=== PATIENT | female | born 1970 | race Hispanic/Latino ===

== ENCOUNTER 2017-07-06 16:49 | Emergency (ER) | payer OTHER ==
[~2017-07-06 16:49] MED LIST: AMLO5TAB2 PO; ASPI-1181 PO; ATOR40TA71 PO; BENA20TA10 PO; GABA-529 PO
[2017-07-06 17:18] LABS: BASOPHILS % (AUTO) 0.5 % (0.0-5.0); EOSINOPHILS % (AUTO) 0.1 % (0.0-8.0); HEMATOCRIT 42.2 % (36-48); MEAN CORPUSCULAR HEMOGLOBIN 30.8 pg (27.0-33.0); MEAN CORPUSCULAR HGB CONC 35.2 g/dL (32.0-36.0); MEAN CORPUSCULAR VOLUME 87.6 fL (79-99); MONOCYTES % (AUTO) 6.6 % (3.0-13.0); NEUTROPHILS % (AUTO) 84.8 % (40.0-77.0); PLATELET COUNT (AUTO) 159 K/uL (130-400); RED BLOOD CELL COUNT(AUTO) 4.81 MIL/uL (4.00-5.50); RED CELL DISTRIBUTION WIDTH 14.9 % (11.0-15.5); WHITE BLOOD COUNT (AUTO) 8.9 K/uL (4.8-10.8)
[2017-07-06 17:28] LABS: APPEARANCE,URINE Clear (CLEAR); BILIRUBIN,URINE Small (NEGATIVE); COLOR,URINE Dark Yellow (YELLOW); GLUCOSE, URINE (UA) >=1000 mg/dL (NEGATIVE); KETONES,URINE 15 mg/dL (NEGATIVE); LEUKOCYTE ESTERASE ,URINE Trace (NEGATIVE); NITRATE,URINE Negative (NEGATIVE); OCCULT BLOOD,URINE Negative (NEGATIVE); PH,URINE 5.5 (5.0-8.0); PROTEIN,URINE POS 1+ (NEGATIVE)
[2017-07-06 17:32] LABS: CREATININE 0.8 mg/dL (0.5-1.5); POTASSIUM 3.5 mmol/L (3.5-5.1)
[2017-07-06 17:39] LABS: BACTERIA,URINE Moderate /HPF (None Seen); MUCUS,URINE Moderate LPF (None Seen); RBC,URINE None Seen /HPF (0-1); RENAL EPITHELIAL CELLS,URINE Rare /HPF (None Seen); TRANSITIONAL EPI CELLS,URINE Few /HPF (None Seen)
[2017-07-06] MEDS ORDERED: SODIUM CHLORIDE 0.9% 1000ML 2,000 ML IV ONE (17:48)
[2017-07-06] MEDS ORDERED: ONDANSETRON HCL MDV 20ML 2 MG/ML VIAL ONE ×2 (17:48→19:58)
[2017-07-06] MEDS ORDERED: DiphenhydrAMINE HCL 50 MG/ML VIAL ONE (19:57)
[2017-07-06] MEDS ORDERED: HYDROMORPHONE 1 MG/1 ML AMP ONE (19:59)
== END 2017-07-06 20:49 | disposition home or self-care (01) ==
LOC: EDH 16:49
DX: R51 Headache (principal); R11.2 Nausea with vomiting, unspecified; E11.9 Type 2 diabetes mellitus without complications; E78.5 Hyperlipidemia, unspecified; I10 Essential (primary) hypertension; Z85.3 Personal history of malignant neoplasm of breast; Z88.8 Allergy status to other drugs, medicaments and biological substances
CPT/HCPCS: 36415; 70450; 80048; 81001; 85025; 96361; 96374; 96375; 96376; 99285; J1170; J1200; J7030

== ENCOUNTER 2017-08-13 12:27 | Inpatient (IN) | payer OTHER ==
[~2017-08-13] VITALS: Ht 165.1 cm; Wt 113.4 kg
[2017-08-13 13:19] LABS: BASOPHILS % (AUTO) 0.4 % (0.0-5.0); EOSINOPHILS % (AUTO) 0.1 % (0.0-8.0); HEMATOCRIT 43.1 % (36-48); LYMPHOCYTES % (AUTO) 8.5 % (21.0-51.0); MEAN CORPUSCULAR HEMOGLOBIN 30.6 pg (27.0-33.0); MEAN CORPUSCULAR HGB CONC 34.7 g/dL (32.0-36.0); MEAN CORPUSCULAR VOLUME 88.3 fL (79-99); MONOCYTES % (AUTO) 3.2 % (3.0-13.0); NEUTROPHILS % (AUTO) 87.8 % (40.0-77.0); PLATELET COUNT (AUTO) 200 K/uL (130-400); RED BLOOD CELL COUNT(AUTO) 4.88 MIL/uL (4.00-5.50); RED CELL DISTRIBUTION WIDTH 13.8 % (11.0-15.5); WHITE BLOOD COUNT (AUTO) 12.9 K/uL (4.8-10.8)
[2017-08-13 13:25] LABS: CREATININE 0.8 mg/dL (0.5-1.5); POTASSIUM 3.5 mmol/L (3.5-5.1)
[2017-08-13 13:39] LABS: ALBUMIN 3.3 g/dL (3.5-5.0); BILIRUBIN,DIRECT 0.4 mg/dL (0.0-0.3); BILIRUBIN,TOTAL 1.1 mg/dL (0.2-1.0); CREATINE KINASE MB 1.4 ng/mL (0.5-3.6); TOTAL PROTEIN, SERUM 6.9 g/dL (6.0-8.3)
[2017-08-13 13:47] LABS: APPEARANCE,URINE Clear (CLEAR); BILIRUBIN,URINE Negative (NEGATIVE); COLOR,URINE Dark Yellow (YELLOW); GLUCOSE, URINE (UA) >=1000 mg/dL (NEGATIVE); KETONES,URINE Trace mg/dL (NEGATIVE); LEUKOCYTE ESTERASE ,URINE Negative (NEGATIVE); NITRATE,URINE Negative (NEGATIVE); OCCULT BLOOD,URINE Negative (NEGATIVE); PH,URINE 5.5 (5.0-8.0); PROTEIN,URINE POS 1+ (NEGATIVE)
[2017-08-13 14:08] LABS: BACTERIA,URINE Rare /HPF (None Seen); RBC,URINE 0-1 /HPF (0-1); SQUAMOUS EPITHELIAL CELL,UR Rare /HPF (0-2); WBC,URINE 0-1 /HPF (0-1)
[2017-08-13] MEDS ORDERED: SODIUM CHLORIDE 0.9% 1000ML 1,000 ML IV ONE (14:33)
[2017-08-13] MEDS ORDERED: POTASSIUM CHLORIDE 10% ELIXIR 20 MEQ/15 ML UDCUP PO PRN (16:00)
[2017-08-13] MEDS ORDERED: DEXTROSE 50%-WATER 50 ML DISP.SYRIN IV PRN (16:00)
[2017-08-13] MEDS ORDERED: GLUCAGON 1MG KIT 1 MG ML IM PRN (16:00)
[2017-08-13] MEDS ORDERED: POTASSIUM CHLORIDE 20 MEQ ERTAB PO PRN (16:00)
[2017-08-13] MEDS ORDERED: MORPHINE SULFATE 4 MG/1ML SYG IVP PRN (16:00)
[2017-08-13] MEDS ORDERED: ONDANSETRON HCL 4 MG/2 ML VIAL IVP PRN (16:00)
[2017-08-13] MEDS ORDERED: ZOSYN 3.375GM+NS 50ML 50 ML IV ONE (16:19)
[2017-08-13 17:25] VITALS: BP 153/89
[2017-08-13] MEDS ORDERED: TAMO20TA4 PO (18:40)
[2017-08-13] MEDS ORDERED: METF10004 PO (18:40)
[2017-08-13 19:00] VITALS: BP 142/89
[2017-08-13] MEDS: INSULIN R PO SS1 SQ SCH (21:04)
[2017-08-14] VITALS (20 sets, daily range): BP systolic 127–180; BP diastolic 68–99
[2017-08-14] MEDS: INSULIN R PO SS1 SQ SCH ×5 (01:58→21:00)
[2017-08-14 04:41] LABS: HEMATOCRIT 40.2 % (36-48); MEAN CORPUSCULAR HGB CONC 36.1 g/dL (32.0-36.0); MEAN CORPUSCULAR VOLUME 88.5 fL (79-99); PLATELET COUNT (AUTO) 195 K/uL (130-400); RED BLOOD CELL COUNT(AUTO) 4.54 MIL/uL (4.00-5.50); RED CELL DISTRIBUTION WIDTH 13.9 % (11.0-15.5); WHITE BLOOD COUNT (AUTO) 7.1 K/uL (4.8-10.8)
[2017-08-14] MEDS ORDERED: BENA20TA10 PO (05:06)
[2017-08-14 05:09] LABS: ALBUMIN 2.8 g/dL (3.5-5.0); BILIRUBIN,TOTAL 0.8 mg/dL (0.2-1.0); CREATININE 0.7 mg/dL (0.5-1.5); MAGNESIUM 1.6 mg/dL (1.80-2.40); POTASSIUM 3.2 mmol/L (3.5-5.1); TOTAL PROTEIN, SERUM 6.6 g/dL (6.0-8.3)
[2017-08-14] MEDS ORDERED: DIATR MEGLU/DIATRIZOATE SODIUM 30 ML BOTTLE ONE (05:52)
[2017-08-14] MEDS ORDERED: IOPAMIDOL-370 75 ML VIAL IV ONE (08:35)
[2017-08-14] MEDS ORDERED: PROPOFOL 10 MG/ML 20ML VIAL IV ONE ×2 (13:45→18:48)
[2017-08-14] MEDS ORDERED: GLYCOPYRROLATE 0.2 MG/ML 5 ML VIAL ONE (13:46)
[2017-08-14] MEDS ORDERED: LIDOCAINE HCL 2% 20ML ONE (13:46)
[2017-08-14] MEDS: POTASSIUM CHLORIDE 20MEQ/100ML 100 ML IV PRN (16:25)
[2017-08-14] MEDS: LIDOCAINE HCL-MPF 1% 2ML VIAL IJ PRN (16:26)
[2017-08-15 04:00] VITALS: BP 123/79
[2017-08-15] MEDS: LIDOCAINE HCL-MPF 1% 2ML VIAL IJ PRN (05:33)
[2017-08-15] MEDS: POTASSIUM CHLORIDE 20MEQ/100ML 100 ML IV PRN (05:33)
[2017-08-15] MEDS: INSULIN R PO SS1 SQ SCH ×2 (05:39→11:30)
[2017-08-15] MEDS ORDERED: CLONIDINE HCL 0.1 MG TABLET PO PRN (06:30)
[2017-08-15 08:39] VITALS: BP 147/96
[2017-08-15] MEDS ORDERED: PANTOPRAZOLE SODIUM 40 MG TABLET.DR PO SCH (09:00)
[2017-08-15 12:53] VITALS: BP 148/96
[2017-08-15 17:11] VITALS: BP 125/84
== END 2017-08-15 18:10 | disposition home or self-care (01) | DRG 720 ==
LOC: EDH 12:27 → EDHIP 15:34 → 3DH 17:03
PROVIDERS: ADMIT Internal Medicine Infectious Disease; ATTEND Internal Medicine Infectious Disease
PROC: 0DB68ZX Excision of Stomach, Via Natural or Artificial Opening Endoscopic, Diagnostic (ICD-10-PCS; principal; 2017-08-14)
DX: A41.9 Sepsis, unspecified organism (principal); K80.00 Calculus of gallbladder with acute cholecystitis without obstruction; E83.42 Hypomagnesemia; K76.0 Fatty (change of) liver, not elsewhere classified; Z68.41 Body mass index [BMI] 40.0-44.9, adult; E11.9 Type 2 diabetes mellitus without complications; E66.9 Obesity, unspecified; E78.5 Hyperlipidemia, unspecified; I10 Essential (primary) hypertension; K21.9 Gastro-esophageal reflux disease without esophagitis; K31.89 Other diseases of stomach and duodenum; K22.8 Other specified diseases of esophagus; E87.6 Hypokalemia; K29.70 Gastritis, unspecified, without bleeding; Z90.12 Acquired absence of left breast and nipple; Z90.710 Acquired absence of both cervix and uterus; Z92.21 Personal history of antineoplastic chemotherapy; Z79.899 Other long term (current) drug therapy; Z88.8 Allergy status to other drugs, medicaments and biological substances; Z90.721 Acquired absence of ovaries, unilateral; Z80.3 Family history of malignant neoplasm of breast; Z83.3 Family history of diabetes mellitus; Z82.49 Family history of ischemic heart disease and other diseases of the circulatory system; Z83.79 Family history of other diseases of the digestive system
CPT/HCPCS: 36415; 74178; 76705; 80048; 80053; 80076; 81001; 82550; 82553; 82948; 83605; 83690; 83735; 84132; 84484; 85025; 85027; 86316; 87040; 88305; 88312; J2543; J2704; J3480; J3490; J7030; Q9963; Q9967

== ENCOUNTER 2017-12-20 20:33 | Emergency (ER) | payer OTHER ==
[~2017-12-20 20:33] MED LIST changes: -AMLO5TAB2 PO; +AMLO5TAB7 PO; -GABA-529 PO; +METF-446 PO; +TAMO20TA4 PO
[2017-12-20] MEDS ORDERED: ONDANSETRON 4 MG TABLET ONE (21:01)
[2017-12-20] MEDS ORDERED: ACETAMINOPHEN-CODEINE ELIXIR 5 ML UDCUP ONE (21:01)
[2017-12-20] MEDS ORDERED: DEXAMETHASONE SOD PHOSPHATE 4 MG/ML 1ML VIAL ONE (21:01)
== END 2017-12-20 21:39 | disposition home or self-care (01) ==
LOC: EDH 20:33
DX: B34.9 Viral infection, unspecified (principal); T78.49XA Other allergy, initial encounter; R51 Headache; E11.9 Type 2 diabetes mellitus without complications; E78.5 Hyperlipidemia, unspecified; I10 Essential (primary) hypertension; Z85.3 Personal history of malignant neoplasm of breast; Z88.6 Allergy status to analgesic agent; X58.XXXA Exposure to other specified factors, initial encounter
CPT/HCPCS: 96372; 99283; J1100; Q0162

== ENCOUNTER 2021-12-17 17:25 | Emergency (ER) | payer OTHER ==
[~2021-12-17] VITALS: Ht 157.5 cm; Wt 104.8 kg
[~2021-12-17 17:25] MED LIST changes: +AMLO-257 PO; -AMLO5TAB7 PO; -ASPI-1181 PO; +ASPI-1443 PO; +BENA-8 PO; -BENA20TA10 PO
[2021-12-17 17:30] VITALS: BP 137/99
[2021-12-17 18:27] LABS: BASOPHILS % (AUTO) 0.7 % (0.0-5.0); EOSINOPHILS % (AUTO) 0.5 % (0.0-8.0); HEMATOCRIT 41.6 % (36-48); LYMPHOCYTES % (AUTO) 22.3 % (21.0-51.0); MEAN CORPUSCULAR HEMOGLOBIN 29.3 pg (27.0-33.0); MEAN CORPUSCULAR HGB CONC 34.1 g/dL (32.0-36.0); MEAN CORPUSCULAR VOLUME 85.8 fL (79-99); MONOCYTES % (AUTO) 6.6 % (3.0-13.0); NEUTROPHILS % (AUTO) 69.7 % (40.0-77.0); PLATELET COUNT (AUTO) 111 K/uL (130-400); RED BLOOD CELL COUNT(AUTO) 4.85 MIL/uL (4.00-5.50); RED CELL DISTRIBUTION WIDTH 13.2 % (11.0-15.5); WHITE BLOOD COUNT (AUTO) 9.2 K/uL (4.8-10.8)
[2021-12-17 18:35] LABS: CREATININE 0.9 mg/dL (0.5-1.5); POTASSIUM 3.5 mmol/L (3.5-5.1)
[2021-12-17 18:39] LABS: TOTAL PROTEIN, SERUM 7.8 g/dL (6.0-8.3)
== END 2021-12-17 19:49 | disposition home or self-care (01) ==
LOC: EDH 17:25
DX: U07.1 COVID-19 (principal); R51.9 Headache, unspecified; E11.9 Type 2 diabetes mellitus without complications; E78.00 Pure hypercholesterolemia, unspecified; I10 Essential (primary) hypertension
CPT/HCPCS: 36415; 80053; 85025

== ENCOUNTER 2024-07-28 18:49 | Emergency (ER) | payer BC ==
[~2024-07-28] VITALS: Ht 165.1 cm; Wt 100.2 kg
[~2024-07-28 18:49] MED LIST changes: -AMLO-257 PO; -ASPI-1443 PO; -ATOR40TA71 PO; -BENA-8 PO; +LISI20TA24 PO; -METF-446 PO
--- NOTE | 2024-07-28 20:16 | HMCIMG ---
CHEST 1VW HISTORY: Chest congestion COMPARISON: 01/30/2017 FINDINGS: A frontal projection of the chest was obtained. Mild bilateral pulmonary infiltrates are seen may be related to mild pulmonary vascular congestion with possible superimposed pneumonitis. The heart is borderline enlarged. Port-A-Cath is seen entering from the right. Degenerative changes are seen. IMPRESSION: 1. Mild bilateral pulmonary infiltrates are seen may be related to mild pulmonary vascular congestion with possible superimposed pneumonitis.
[2024-07-28 20:40] LABS: INFLUENZA TYPE A Negative For Type A (NEGATIVE); INFLUENZA TYPE B Negative For Type B (NEGATIVE)
[2024-07-28 20:41] LABS: COVID19 (SARS ANTIGEN RAPID) PRESUMPTIVE NEGATIVE (NEGATIVE)
[2024-07-28 20:43] LABS: APPEARANCE,URINE CLOUDY (CLEAR); BILIRUBIN,URINE NEGATIVE (NEGATIVE); COLOR,URINE YELLOW (YELLOW); GLUCOSE, URINE (UA) >=1000 mg/dL (NEGATIVE); KETONES,URINE NEGATIVE (NEGATIVE); LEUKOCYTE ESTERASE ,URINE 250 Leu/uL (NEGATIVE); NITRATE,URINE 2+ (NEGATIVE); OCCULT BLOOD,URINE NEGATIVE (NEGATIVE); PROTEIN,URINE 10 mg/dL (NEGATIVE)
[2024-07-28 20:44] LABS: ADD UA MICROSCOPIC YES
[2024-07-28 20:45] LABS: BACTERIA,URINE MOD /HPF (None Seen); MUCUS,URINE RARE LPF (None Seen); SQUAMOUS EPITHELIAL CELL,UR RARE /HPF (0-2); UNCLASSIFIED CRYSTAL 1 /HPF (None Seen); WBC,URINE 51-100 /HPF (0-1)
[2024-07-28 21:10] VITALS: BP 157/89; PULSE 85; RESP 16; TEMP 98; O2SAT 97
[2024-07-28] MEDS ORDERED: AMOX1TAB16 PO (21:24)
[2024-07-28] MEDS ORDERED: BENZ-39 PO (21:24)
--- NOTE | 2024-07-28 21:30 | ERN ---
General Chief Complaint: Cough Stated Complaint: THINKS HAVE PNEUMONIA/ BURNING URINE Time Seen by MD: 18:58 Time Seen by Midlevel: 18:58 Source: patient History of Present Illness Initial Comments The patient is a 53-year-old female with a past medical history of type 2 diabetes and breast cancer presenting to the emergency department with multiple complaints. She reports having a cough for the last four days. She states her symptoms feel similar to the previous time she was diagnosed with pneumonia. She also reports increased urinary frequency and dysuria and believes she may have a urinary tract infection. Denies any other symptoms Allergies: Coded Allergies: ibuprofen (Unverified Allergy, Unknown, 10/04/16) Home Meds Reported Medications Lisinopril (Lisinopril) 20 Mg Tablet, 20 MG PO AM, TAB 12/06/22 Tamoxifen Citrate (Tamoxifen Citrate) 20 Mg Tablet, 20 MG PO DAILY AT 0600, TAB 08/13/17 Past Medical History Past Medical History: Diabetes-Type II, High Cholesterol, Hypertension Medical History Other: LT BREAT CA Past Surgical History: Hysterectomy, Surgical History Other: HERNIA, LT KNEE Female( History) History: Not Applicable ROS Dictation CONSTITUTIONAL: Negative except for HPI HEAD/FACE: Negative except for HPI EENT: Negative except for HPI RESPIRATORY: Negative except for HPI GASTROINTESTINAL/ABDOMINAL: Negative except for HPI GENITOURINARY: Negative except for HPI MUSCULOSKELETAL: Negative except for HPI INTEGUMENTARY: Negative except for HPI NEUROLOGICAL/PSYCH: Negative except for HPI HEMATOLOGIC/LYMPHATIC: Negative except for HPI All Systems Negative, Except as noted above. 13 point review of systems assessed and all negative except for above. Physical Exam Physical Exam Dictation Vital Signs reviewed General Appearance: Alert, oriented x 3, no acute distress, well developed, nourished. Head and Face: non-traumatic. Eyes: PERRL, pink conjunctivas, eyelid no trauma, anterior chamber with arcus senilis. Ears: Pinnas intact and no signs of trauma or erythema ear canals clear and no discharge TM no erythema Nose: No discharge, no bleeding. Oropharynx: Mouth normal, tongue pink, pharynx clear,no erythema, tonsils no exudates, no abscesses noted, mucous membrane moist Neck: Supple, non-tender, no thyromegaly, no masses, no JVD, no bruits Breast:Deferred Chest:No tenderness, no crepitus, no paradoxical movement, no retractions Lungs:Clear, well-ventilated, symmetric, no rales, no wheezing, no rhonchi, no stridor, good breath sounds bilaterally Heart: Regular rate, regular rhythm, no murmur, no gallops Vascular: no peripheral edema, Abdomen: Soft, positive bowel sounds, nondistended, no guarding, nontender, no rebound, no masses no hepatomegaly, no splenomegaly, no Elliott's sign, no hernias. Rectal: Deferred Genital: Deferred Neurological: Normal speech, motor function intact, sensory function intact Musculoskeletal: Neck nontender, full range of motion, back nontender, full range of motion, Extremities: nontender, full range of motion Skin: Color pink, dry, no turgor, no rash, no lacerations, no abrasions, no contusions. Lymphatic: Deferred Results Laboratory and Microbiology Lab and Micro Result Laboratory Tests Test 07/28/24 20:06 07/28/24 20:30 Influenza Type A Antigen Negative For Type A Influenza Type B Antigen Negative For Type B SARS-CoV-2 Antigen (Rapid) PRESUMPTIVE NEGATIVE Urine Color YELLOW (YELLOW) Urine Appearance CLOUDY (CLEAR) H Urine pH 6.0 (5.0-8.0) Urine Specific [place] 1.031 (1.001-1.031) Urine Protein 10 mg/dL (NEGATIVE) H Urine Glucose (UA) >=1000 mg/dL (NEGATIVE) H Urine Ketones NEGATIVE mg/dL (NEGATIVE) Urine Occult Blood NEGATIVE (NEGATIVE) Urine Nitrate 2+ (NEGATIVE) H Urine Bilirubin NEGATIVE mg/dL (NEGATIVE) Urine Urobilinogen 4.0 mg/dL (0.2-1.0) H Urine Leukocyte Esterase 250 Phill/uL (NEGATIVE) H Urine RBC 2-5 /HPF (0-1) H Urine WBC 51-100 /HPF (0-1) H Urine Squamous Epithelial Cells RARE /HPF (0-2) Urine Other Crystals (Auto) 1 /HPF (None Seen) Urine Bacteria MOD /HPF (None Seen) Labs Reviewed?: Yes MDM MDM: Differential diagnosis: Pneumonia, urinary tract infection, viral illness There are no social concerns with this patient. Prescription drug management Prescriptions will include: Augmentin, Tessalon Perles Medical management and examination interpretation discussions were had by me with other qualified healthcare professionals as indicated for the patient's care. ED Course Orders Procedure Category Date Status Time Influenza Type A & B, LAB 07/28/24 Complete Rapid 18:54 Covid19 (Sars Antigen LAB 07/28/24 Complete Rapid) 18:54 Urinalysis Profile LAB 07/28/24 Complete 18:54 Chest 1vw RAD 07/28/24 Resulted 18:54 Culture Urine RACHEL 07/28/24 In Process 20:44 Vital Signs Date Time Temp Pulse Resp B/P (MAP) Pulse Ox O2 Delivery O2 Flow Rate FiO2 07/28/24 21:10 98.1 85 16 157/89 97 Room Air* 0 21 07/28/24 18:55 98.2 88 16 168/95 96 Room Air 0 [place] [id number] [address] IMAGING REPORT Signed PATIENT: GORDON MCLAUGHLIN MR#: [id number] : 1970 SEX: F AGE: 53 LOCATION: [facility] ORDER 54 STATUS: REG ER REPORT#: [id number] SERVICE 53 REASON: CHEST CONGESTION ORDERING PHYSICIAN: ALYSON HENDRICKS DO PROCEDURE: CXR1VW - CHEST 1VW CHEST 1VW HISTORY: Chest congestion COMPARISON: 01/30/2017 FINDINGS: A frontal projection of the chest was obtained. Mild bilateral pulmonary infiltrates are seen may be related to mild pulmonary vascular congestion with possible superimposed pneumonitis. The heart is borderline enlarged. Port-A-Cath is seen entering from the right. Degenerative changes are seen. IMPRESSION: 1. Mild bilateral pulmonary infiltrates are seen may be related to mild pulmonary vascular congestion with possible superimposed pneumonitis. DICTATED BY: EVELINA SOW MD DATE: 07/28/242010 ELECTRONICALLY SIGNED BY: EVELINA SOW MD DATE: 07/28/242015 DX & DISP Disposition: Discharge Departure Impression: Primary Impression: Community acquired pneumonia Additional Impression: Urinary tract infection Condition: Stable Scripts Benzonatate (Tessalon Perles) 100 Mg Cap 100 MG PO TID for cough, #30 CAP 0 Refills Prov: YOVANI QUINTANILLA 07/28/24 Amoxicillin/Potassium Clav (Amox Tr-K Clv 875-125 mg Tab) 875 Mg-125 Mg Tablet 1 EACH PO BID for 10 Days, #20 TAB 0 Refills Prov: YOVANI QUINTANILLA 07/28/24 Referrals: MORE IBARRA MD (PCP) I have reviewed the case, and I agree with, Diagnosis and Plan I performed the substantive portion of the visit. I have reviewed and personally made and approve the management plan that is documented in the note by myself or the [facility]. I acknowledge for responsibility for the patient's management plan. YOVANI QUINTANILLA Jul 28, 2024 21:30
[2024-07-28] MEDS: cefTRIAXone 1G VIAL IM ONE (21:34)
== END 2024-07-28 21:38 | disposition home or self-care (01) ==
LOC: EDH 18:49
DX: J18.9 Pneumonia, unspecified organism (principal); N39.0 Urinary tract infection, site not specified; E11.9 Type 2 diabetes mellitus without complications; E78.00 Pure hypercholesterolemia, unspecified; I10 Essential (primary) hypertension; Z20.822 Contact with and (suspected) exposure to COVID-19; Z88.6 Allergy status to analgesic agent; Z90.710 Acquired absence of both cervix and uterus; Z98.890 Other specified postprocedural states
CPT/HCPCS: 99284; 71045; 87426; 87086 ×2; 87186; 87804 ×2; 81001; 96372; J0696

== ENCOUNTER 2025-02-02 18:29 | Emergency (ER) | payer BC ==
[~2025-02-02] VITALS: Ht 157.5 cm; Wt 103.4 kg
[~2025-02-02 18:29] MED LIST changes: +AMOX1TAB16 PO; +BENZ-39 PO
--- NOTE | 2025-02-02 18:57 | ERN ---
ED Note History of Present Illness Stated Complaint: LOWER EXT EDEMA Chief Complaint: LOWER EXTREMITY EDEMA Time Seen by MD: 18:35 Dictation: 54-year-old female presents to ER complaints of bilateral lower extremity edema. Patient denies chest pain or shortness of breath. Patient states she has had about 2 years of noncompliance with blood pressure medication. She has not seen a doctor. Patient has history of HTN and diabetes Allergies: Coded Allergies: ibuprofen (Unverified Allergy, Unknown, 10/04/16) Home Meds Active Scripts Benzonatate (Tessalon Perles) 100 Mg Cap, 100 MG PO TID for cough, #30 CAP 0 Refills Prov:YOVANI QUINTANILLA PAC 07/28/24 Amoxicillin/Potassium Clav (Amox Tr-K Clv 875-125 mg Tab) 875 Mg-125 Mg Tablet, 1 EACH PO BID for 10 Days, #20 TAB 0 Refills Prov:YOVANI QUINTANILLA PAC 07/28/24 Reported Medications Lisinopril (Lisinopril) 20 Mg Tablet, 20 MG PO AM, TAB 12/06/22 Tamoxifen Citrate (Tamoxifen Citrate) 20 Mg Tablet, 20 MG PO DAILY AT 0600, TAB 08/13/17 Past Medical History Past Medical History: Cancer, Diabetes-Type II, High Cholesterol, Hypertension Additional Past Medical Hx: LT BREAT CA Surgical History: Hysterectomy, Other, Surgical History Other: LT MASTECTOMY, D&C, LT KNEE SX History: Not Applicable Review of System Dictation CONSTITUTIONAL: NEGATIVE FOR FEVER,CHILLS, AND WEIGHT LOSS EYES: NEGATIVE FOR INJURY, PAIN,REDNESS, AND DISCHARGE ENT: NEGATIVE FOR INJURY,PAIN OR SWELLING CARDIOVASCULAR: NEGATIVE FOR CHEST PAIN, PALPITATIONS,. Positive lower leg edema RESPIRATORY: NEGATIVE FOR SHORTNESS OF BREATH, COUGH, WHEEZING, AND PLEURITIC CHEST PAIN ABDOMEN/GI: NEGATIVE FOR ABDOMINAL PAIN, NAUSEA, VOMITING AND DIARRHEA. BACK: NEGATIVE FOR PAIN OR INJURY : NEGATIVE FOR INJURY, BLEEDING AND DISCHARGE MS/EXTREMITY: NEGATIVE FOR INJURY AND DEFORMITY SKIN: NEGATIVE FOR RASH, AND DISCOLORATION NEURO: NEGATIVE FOR HEADACHE, WEAKNESS, NUMBNESS, TINGLING, AND SEIZURE PSYCH: NEGATIVE FOR SUICIDE IDEATION, HOMICIDAL IDEATION, AND HALLUCINATIONS ALLERGY/IMMUNOLOGY: NEGATIVE FOR HIVES, RASH, AND ALLERGIES ALL SYSTEMS NEGATIVE, EXCEPT NOTED ABOVE. 13 POINT REVIEW OF SYSTEMS ASSESSED AND ALL NEGATIVE EXCEPT FOR ABOVE. Initial Vital Sign VS Vital Signs Date Time Temp Pulse Resp B/P (MAP) Pulse Ox O2 Delivery O2 Flow Rate FiO2 02/02/25 18:33 97.3 98 16 166/92 98 Room Air 0 02/02/25 21:45 21 Physical Exam Dictation General: awake, alert, NAD Head/Face: Normocephalic, atraumatic Eyes: PERRL, EOMI, vision at baseline ENT: oral cavity clear, TMs clear, no signs of infection Neck: Trachea midline, supple, no nuchal rigidity Cardiovascular: RRR, normal no JVD. Plus one pedal edema to bilateral lower legs Respiratory: CTAB, no respiratory distress, No rales or wheezes Abdomen: Soft, non-tender, non-distended, normal bowel sounds, no guarding or rebound. Skin: Warm, dry, normal turgor, no rash MS/Extremity: Pulses equal, no cyanosis, neurovascular intact, FROM Neuro: COAx4, GCS 15, strength 5/5, CN 2-12 intact, normal cerebellar exam, normal gait, Psych: Normal behavior, mood, and affect normal Results (Laboratory/Radiology) Laboratory/Radiology Laboratory Tests Test 02/02/25 20:10 White Blood Count 4.4 K/uL (4.8-10.8) L Red Blood Count 4.46 MIL/uL (4.00-5.50) Hemoglobin 10.3 g/dL (12.0-16.0) L Hematocrit 33.8 % (36-48) L Mean Corpuscular Volume 75.8 fL (79-99) L Mean Corpuscular Hemoglobin 23.1 pg (27.0-33.0) L Mean Corpuscular Hemoglobin Concent 30.5 g/dL (32.0-36.0) L Red Cell Distribution Width 16.9 % (11.0-15.5) H Platelet Count 122 K/uL (130-400) L Mean Platelet Volume fL (7.5-10.5) Immature Granulocyte % (Auto) 0.2 % (0-1) Neutrophils (%) (Auto) 60.2 % (40.0-77.0) Lymphocytes (%) (Auto) 24.5 % (21.0-51.0) Monocytes (%) (Auto) 13.5 % (3.0-13.0) H Eosinophils (%) (Auto) 0.9 % (0.0-8.0) Basophils (%) (Auto) 0.7 % (0.0-5.0) Neutrophils # (Auto) 2.6 K/uL (1.8-7.7) Lymphocytes # (Auto) 1.1 K/uL (1.0-4.8) Monocytes # (Auto) 0.6 K/uL (0.1-1.0) Eosinophils # (Auto) 0.04 K/uL (0.00-0.70) Basophils # (Auto) 0.03 K/uL (0.00-0.20) Absolute Immature Granulocyte (auto 0.01 K/uL (0-1) Nucleated Red Blood Cells 0.0 % (0.0-0.19) Red Blood Cell Morphology See comments Sodium Level 138 mmol/L (136-145) Potassium Level 3.5 mmol/L (3.5-5.1) Chloride Level 103 mmol/L (101-111) Carbon Dioxide Level 29 mmol/L (21-32) Blood Urea Nitrogen 11 mg/dL (7-18) Creatinine 0.7 mg/dL (0.5-1.0) Glomerular Filtration Rate Calc 104 mL/min (>90) Random Glucose 268 mg/dL (70-105) H Total Calcium 8.7 mg/dL (8.5-10.1) Total Creatine Kinase 51 U/L (21-232) B-Type Natriuretic Peptide 39 pg/mL (0-100) X-RAY Comment: PATIENT: GORDON MCLAUGHLIN MR#: [id number] : 1970 SEX: F AGE: 54 LOCATION: [facility] ORDER 52 STATUS: REG REPORT#: [id number] SERVICE 50 REASON: edema ORDERING PHYSICIAN: ERICK LARIOS PROCEDURE: CXR1VW - CHEST 1VW EXAM: CR Chest, 1 View. CLINICAL HISTORY: edema COMPARISON: None provided. FINDINGS: LUNGS: There is no mass, infiltrate, or acute pulmonary abnormality. PLEURAL SPACES: No pleural effusion or pneumothorax. MEDIASTINUM: The cardiomediastinal silhouette is within normal limits. Venous line SVC BONES: No acute osseous abnormality. IMPRESSION: No acute cardiopulmonary pathology is evident. /[place] DICTATED BY: PRADEEP UGALDE MD DATE: 02/02/252026 ELECTRONICALLY SIGNED BY: PRADEEP UGALDE MD DATE: 02/02/252026 ED Course ED Course Orders Procedure Category Date Status Time Us Venous Doppler US 02/02/25 Resulted Bilateral 18:51 Cbc With Differential LAB 02/02/25 Complete 18:51 Basic Metabolic Panel LAB 02/02/25 Complete 18:51 B-Type Natriuretic LAB 02/02/25 Complete Peptide 18:51 12 Lead Ekg Tracing- EKG 02/02/25 Resulted Technical 18:51 Creatine Kinase, Total LAB 02/02/25 Complete 18:51 Chest 1vw RAD 02/02/25 Resulted 18:51 Vital Signs Date Time Temp Pulse Resp B/P (MAP) Pulse Ox O2 Delivery O2 Flow Rate FiO2 02/02/25 21:45 97.9 88 16 148/82 100 Room Air* 0 21 02/02/25 18:33 97.3 98 16 166/92 98 Room Air 0 Medical Decision Making MDM MDM: Differential diagnosis: CHF, DVT, pedal edema Rationale: Tests considered and ordered secondary to shared decision making include: labs, ECG and radiology Previous outside records reviewed: Old ER visits. Risk of complication and/or morbidity or mortality of patient management: None Medications-Per medication reconciliation Need for hospitalization: Patient does NOT meet criteria for hospitalization. Need for emergency major/minor surgery: No There are no social concerns with this patient. Prescription drug management Prescriptions will include symptomatic care Patient's prior external medical records from other ER visits were reviewed by me as indicated. Prior testing and results from previous visits were reviewed. Prior tests were taken into account with medical decision making and resource utilization, independent historian/historians were used to obtain complete medical history. I independently interpreted the test that were performed, results were reviewed by me and considered findings on radiology if ordered. Lab results, bilateral venous Doppler, chest x-ray all unremarkable. Patient advised to follow up with primary doctor she needs to get her blood pressure and diabetes under control. DX & DISP Disposition: Discharge Departure Impression: Primary Impression: Pedal edema Condition: Stable Additional Instructions: Lab results, chest x-ray and bilateral venous Doppler unremarkable. FOLLOW-UP WITH YOUR PCP IN 24-72 HOURS AND IN THE EVENT IF SYMPTOMS WORSEN OR AN EMERGENCY OVERNIGHT REPORT TO THE ED IMMEDIATELY Referrals: MORE IBARRA MD (PCP) ATTESTATION BY PHYSICIAN I PERFORMED THE SUBSTANTIVE PORTION OF THE VISIT. I HAVE REVIEWED AND PERSONALLY MADE AND APPROVED THE MANAGEMENT PLAN THAT IS DOCUMENTED IN THE NOTE BY MYSELF FOR THE A PP. ERICK LARIOS Feb 02, 2025 18:57 RUBINA MONDRAGON MD Feb 05, 2025 07:47
--- NOTE | 2025-02-02 19:24 | EKG ---
[facility] Test Date: 2025-02-02 Test Time: 19:22:25 Pat Name: GORDON MCLAUGHLIN Department: ED Room: Gender: F Carrier Blower: [id number] : 1970 Requested By: ERICK LARIOS Order Number: [id number] Reading MD: Kaye White Measurements Intervals [place] Rate: 97 P: 48 KS: 151 QRS: 17 QRSD: 88 T: 88 QT: 403 QTc: 513 Interpretive Statements Sinus rhythm Probable left atrial enlargement Nonspecific T abnrm, anterolateral leads Prolonged QT interval Compared to ECG 12/03/2022 17:36:11 Prolonged QT interval now present Electronically Signed On 02-03-2025 12:28:07 [employer] by Kaye White Please click the below link to view image of tracing.
--- NOTE | 2025-02-02 19:28 | HMCIMG ---
EXAM: CR Chest, 1 View. CLINICAL HISTORY: edema COMPARISON: None provided. FINDINGS: LUNGS: There is no mass, infiltrate, or acute pulmonary abnormality. PLEURAL SPACES: No pleural effusion or pneumothorax. MEDIASTINUM: The cardiomediastinal silhouette is within normal limits. Venous line SVC BONES: No acute osseous abnormality. IMPRESSION: No acute cardiopulmonary pathology is evident. /[place]
[2025-02-02 20:23] LABS: IMMATURE GRANULOCYTE ABSOLUTE 0.01 K/uL (0-1); NUCLEATED RED BLOOD CELLS 0.0 % (0.0-0.19); PLATELET COUNT (AUTO) 122 K/uL (130-400); RED BLOOD CELL COUNT(AUTO) 4.46 MIL/uL (4.00-5.50); RED CELL DISTRIBUTION WIDTH 16.9 % (11.0-15.5); WHITE BLOOD COUNT (AUTO) 4.4 K/uL (4.8-10.8)
[2025-02-02 20:54] LABS: CREATININE 0.7 mg/dL (0.5-1.0); GLOMERULAR FILTR. RATE CALC 104.0 mL/min (>90); GLUCOSE,RANDOM 268.0 mg/dL (70-105); SODIUM SERUM 138.0 mmol/L (136-145); UREA NITROGEN, BLOOD 11.0 mg/dL (7-18)
[2025-02-02 20:59] LABS: CREATINE KINASE, TOTAL 51.0 U/L (21-232)
--- NOTE | 2025-02-02 21:07 | HMCIMG ---
EXAMINATION: SPECTRAL DOPPLER ULTRASOUND EXAMINATION OF THE BILATERAL LOWER EXTREMITY VEINS. CLINICAL HISTORY: Bilateral leg swelling. COMPARISON: None provided. TECHNIQUE: Real-time ultrasound scan of the veins of the bilateral lower extremity with color Doppler flow, spectral waveform analysis, and compression. FINDINGS: DEEP VEINS: The common femoral, superficial femoral, and popliteal veins are echolucent and compressible. There is normal color Doppler flow throughout. The visualized calf veins appear patent. SUPERFICIAL VEINS: The greater saphenous veins are patent and compressible. SOFT TISSUES: No popliteal fossa cyst or other abnormalities. IMPRESSION: No deep venous thrombosis is evident in the bilateral lower extremities. No superficial thrombophlebitis in the bilateral lower extremity. /[place]
[2025-02-02 21:45] VITALS: BP 148/82; PULSE 88; RESP 16; TEMP 97.8; O2SAT 100
== END 2025-02-02 21:49 | disposition home or self-care (01) ==
LOC: EDH 18:29
DX: R60.0 Localized edema (principal); E11.9 Type 2 diabetes mellitus without complications; E78.00 Pure hypercholesterolemia, unspecified; I10 Essential (primary) hypertension; Z79.810 Long term (current) use of selective estrogen receptor modulators (SERMs); Z88.6 Allergy status to analgesic agent; Z90.12 Acquired absence of left breast and nipple; Z90.710 Acquired absence of both cervix and uterus
CPT/HCPCS: 36415; 71045; 80048; 82550; 83880; 85025; 93005; 93970; 99284